=== PATIENT | female | born 1960 | race Caucasian/White ===

== ENCOUNTER 2023-02-15 06:47 | Day surgery (SDC) | payer OTHER ==
[~2023-02-15] VITALS: Ht 152.4 cm; Wt 65.8 kg
[2023-02-15] MEDS ORDERED: fentaNYL CITRATE/PF 100 MCG/2 ML AMP ONE (07:24)
[2023-02-15] MEDS ORDERED: MIDAZOLAM HCL 5 MG/5 ML VIAL ONE (07:24)
[2023-02-15 07:38] VITALS: O2SAT 99
[2023-02-15 09:10] VITALS: BP_SYST 110; PULSE 69; RESP 20
== END 2023-02-15 09:00 | disposition home or self-care (01) ==
LOC: SDS 06:47 → SMU 06:50 → SDS 09:00
PROVIDERS: ATTEND Internal Medicine
DX: Z12.11 Encounter for screening for malignant neoplasm of colon (principal); K64.8 Other hemorrhoids; I10 Essential (primary) hypertension; Z98.84 Bariatric surgery status; Z98.890 Other specified postprocedural states; Z79.899 Other long term (current) drug therapy
CPT/HCPCS: 45378; 99152; G0378; J2250; J3010